=== PATIENT | male | born 1955 | race Caucasian/White ===

== ENCOUNTER → 2020-11-25 15:11 | Outpatient (CLI) | payer BC, SELFPAY ==
--- NOTE | ~2020-11-25 | CT_ITS ---
EXAMINATION: CT diagnostic chest wo con EXAM DATE: 11/25/2020 15:40 INDICATION: Pulmonary nodules. Pulmonary nodule 6 mm in diameter, risk factor for lung cancer. TECHNIQUE: Spiral CT of the chest without contrast. Axial, coronal and sagittal images were reviewe d. Coronal maximum intensity pixel images of chest reviewed. The dose-length product (DLP) for this examination was 324.80 mGy-cm. The exposure was tailored according to patient size (auto mA exposur e control), and iterative reconstruction (ASIR) was used as additional dose reduction technique. The re is no prior study for comparison. FINDINGS: Several small peripheral nodular opacities bilaterally, up to about 4 mm in size. Most lik lico postinfectious. There is severe chronic hyperinflation with narrow cardiac silhouette. There is m ild emphysema. There are no pleural or pericardial effusions. Tracheobronchial tree is patent. Th ere is no mediastinal, hilar or axillary lymphadenopathy. There is no pneumothorax. There is mild coronary arterial calcification, arterial sclerosis. Upper abdomen is unremarkable. There is mild thoracic spondylosis without osteoblastic or osteolytic lesions identified. IMPRESSION: 1. Several small peripheral nodules most likely postinfectious. Consider one-year follow-up low-dose chest CT. 2. Severe hyperinflation. 3. Mild emphysema. Reviewed, dictated and finalized at location A. IMPRESSION: 1. Several small peripheral nodules most likely postinfectious. Consider one-y ear follow-up low-dose chest CT. 2. Severe hyperinflation. 3. Mild emphysema.
== END ==
PROVIDERS: PCP Family Medicine; Visit Provider Family Medicine
DX: R91.1 Solitary pulmonary nodule (principal); Z91.89 Other specified personal risk factors, not elsewhere classified; J43.9 Emphysema, unspecified; R91.8 Other nonspecific abnormal finding of lung field
CPT/HCPCS: 71250